=== PATIENT | female | born 1965 | race Two or more races ===

== ENCOUNTER 2018-07-01 10:40 | Outpatient (CLI) | payer OTHER ==
[~2018-07-01 10:40] MED LIST: SYNTHROID50 MCG PO; SYNTHROID75 MCG PO; TUSSI PRES-B L120 M1 PO
== END 2018-07-01 10:42 | disposition home or self-care (01) ==
LOC: SONOGRAMA 10:40
DX: E04.1 Nontoxic single thyroid nodule (principal)

== ENCOUNTER 2019-03-27 12:36 | Emergency (ER) | payer OTHER ==
[~2019-03-27] VITALS: Ht 160 cm; Wt 47.2 kg
== END 2019-03-27 15:04 | disposition home or self-care (01) ==
LOC: ER 12:36
DX: M79.18 Myalgia, other site (principal)

== ENCOUNTER 2019-04-01 14:24 | Outpatient (CLI) | payer OTHER | END 2019-04-01 14:29 | disposition home or self-care (01) | LOC: SONOGRAMA 14:24 → MAMO-SONO 14:45 | DX: E04.1 Nontoxic single thyroid nodule (principal) ==

== ENCOUNTER 2019-08-22 10:15 | Emergency (ER) | payer OTHER ==
[~2019-08-22] VITALS: Ht 160 cm; Wt 47.6 kg
== END 2019-08-22 15:54 | disposition home or self-care (01) ==
LOC: ER 10:15
DX: K52.89 Other specified noninfective gastroenteritis and colitis (principal)

== ENCOUNTER 2019-10-24 08:20 | Outpatient (CLI) | payer OTHER | END 2019-10-24 09:20 | disposition home or self-care (01) | LOC: NUCLEAR 08:20 | DX: R55 Syncope and collapse (principal) ==

== ENCOUNTER 2019-10-24 09:42 | Outpatient (CLI) | payer OTHER | END 2019-10-24 09:52 | disposition home or self-care (01) | LOC: MRI 09:42 | DX: R55 Syncope and collapse (principal) | CPT/HCPCS: 70551 ==

== ENCOUNTER 2019-11-03 11:22 | Emergency (ER) | payer OTHER ==
[~2019-11-03] VITALS: Ht 160 cm; Wt 47.2 kg
== END 2019-11-03 16:27 | disposition home or self-care (01) ==
LOC: ER 11:22
DX: B34.9 Viral infection, unspecified (principal)

== ENCOUNTER 2020-08-24 09:25 | Outpatient (CLI) | payer OTHER | END 2020-08-24 09:27 | disposition home or self-care (01) | LOC: SONOGRAMA 09:25 | DX: E04.1 Nontoxic single thyroid nodule (principal) ==

== ENCOUNTER 2021-04-20 08:00 | Outpatient (CLI) | payer OTHER | END 2021-04-20 08:30 | disposition home or self-care (01) | LOC: PPH VACUNA 08:00 | DX: Z23 Encounter for immunization (principal) ==

== ENCOUNTER 2021-05-12 08:00 | Outpatient (CLI) | payer OTHER | END 2021-05-12 08:30 | disposition home or self-care (01) | LOC: PPH VACUNA 08:00 | DX: Z23 Encounter for immunization (principal) ==

== ENCOUNTER 2021-08-31 10:50 | Outpatient (CLI) | payer OTHER | END 2021-08-31 11:05 | disposition home or self-care (01) | LOC: MAMO-SONO 10:50 | DX: E04.1 Nontoxic single thyroid nodule (principal); N64.59 Other signs and symptoms in breast; Z12.31 Encounter for screening mammogram for malignant neoplasm of breast ==

== ENCOUNTER 2022-06-15 10:52 | Outpatient (CLI) | payer OTHER | END 2022-06-15 10:55 | disposition home or self-care (01) | LOC: NUCLEAR 10:52 | PROVIDERS: ATTEND Internal Medicine | DX: R55 Syncope and collapse (principal); Z88.6 Allergy status to analgesic agent ==

== ENCOUNTER 2022-08-07 10:14 | Outpatient (CLI) | payer OTHER | END 2022-08-07 10:19 | disposition home or self-care (01) | LOC: SONOGRAMA 10:14 | PROVIDERS: ATTEND General Practice | DX: E04.1 Nontoxic single thyroid nodule (principal) ==

== ENCOUNTER 2023-03-25 14:15 | Emergency (ER) | payer OTHER ==
[~2023-03-25] VITALS: Ht 152.4 cm; Wt 56.7 kg
[2023-03-25] MEDS ORDERED: SYNTHROID88 MCG PO (14:30)
== END 2023-03-25 18:32 | disposition home or self-care (01) ==
LOC: ER 14:15
DX: U07.1 COVID-19 (principal)

== ENCOUNTER 2024-04-15 13:15 | Outpatient (CLI) | payer OTHER ==
[~2024-04-15 13:15] MED LIST changes: +SYNTHROID88 MCG PO
== END 2024-04-15 13:21 | disposition home or self-care (01) ==
LOC: SONOGRAMA 13:15
PROVIDERS: ATTEND General Practice
DX: E04.1 Nontoxic single thyroid nodule (principal)

== ENCOUNTER 2024-11-07 09:23 | Outpatient (CLI) | payer OTHER | END 2024-11-07 09:31 | disposition home or self-care (01) | LOC: SONOGRAMA 09:23 | DX: E04.1 Nontoxic single thyroid nodule (principal); M25.511 Pain in right shoulder ==

== ENCOUNTER 2024-11-16 15:49 | Emergency (ER) | payer OTHER ==
[~2024-11-16] VITALS: Ht 160 cm; Wt 54.4 kg
[2024-11-16] MEDS ORDERED: LEVOXYL75 MCG (16:10)
[2024-11-16] MEDS ORDERED: ACETAMINOPHEN 325 MG TABLET PO ONE (17:00)
[2024-11-16] MEDS ORDERED: ORPHENADRINE CITRATE 30 MG/ML AMPUL IM ONE (17:00)
[2024-11-16] MEDS ORDERED: DEXAMETHASONE SODIUM PHOSPHATE 4 MG/ML VIAL IM ONE (17:00)
[2024-11-16] MEDS ORDERED: 8 HOUR650 MG PO (17:14)
[2024-11-16] MEDS ORDERED: NORFLEX100MG PO (17:14)
== END 2024-11-16 17:38 | disposition home or self-care (01) ==
LOC: ER 15:51
DX: M25.511 Pain in right shoulder (principal); E03.9 Hypothyroidism, unspecified; Z88.6 Allergy status to analgesic agent